=== PATIENT | female | born 1970 | race Caucasian/White ===

== ENCOUNTER → 2022-01-30 | Outpatient (CLI) | payer OTHER ==
--- NOTE | 2022-01-30 15:57 | XR ---
EXAMINATION TYPE: XR cervical spine comp DATE OF EXAM: 01/30/2022 COMPARISON: None HISTORY: Neck pain TECHNIQUE: 4 view cervical spine FINDINGS: Prevertebral space is normal. Posterior spinal lamellar line is intact. Disc height and carisa tebral body heights are preserved. Foramen are patent. No acute osseous abnormality radiographically apparent. IMPRESSION: 1. No acute osseous abnormality cervical spine. Follow-up can be performed as clinically indicated.
--- NOTE | 2022-01-30 15:58 | XR ---
EXAMINATION TYPE: XR thoracic spine complete DATE OF EXAM: 01/30/2022 COMPARISON: None HISTORY: Back pain TECHNIQUE: 3 view thoracic spine FINDINGS: No acute fractures are evident. There are 12 thoracic type vertebral bodies. Pedicles are i ntact. Disc heights are preserved. Vertebral body heights are preserved. Follow up exams can be perfo rmed as clinically indicated. IMPRESSION: 1. No acute osseous abnormalities thoracic spine.
== END | disposition home or self-care (01) ==
LOC: RADXRYALE 13:46
PROVIDERS: ATTEND Physician Assistant
DX: M50.30 Other cervical disc degeneration, unspecified cervical region (principal); M51.34 Other intervertebral disc degeneration, thoracic region
CPT/HCPCS: 72050; 72072

== ENCOUNTER → 2022-02-14 | Outpatient (CLI) | payer OTHER ==
--- NOTE | 2022-02-15 18:58 | MM ---
Reason for Exam: Screening (asymptomatic). Last mammogram was performed 5 year(s) and 8 month(s) ago. Patient History: Menarche at age 13. Postmenopausal. Risk Values: Carisa 5 year model risk: 0.7%. NCI Lifetime model risk: 5.8%. Tissue Density: The breast tissue is heterogeneously dense. This may lower the sensitivity of mammography. Findings: Analyzed By CAD. Bilateral breast implants. There is no suspicious group of microcalcifications or new suspicious mass in either breast. Overall Assessment: Negative, BI-RAD 1 Management: Screening Mammogram of both breasts in 1 year. A clinical breast exam by your physician is recommended on an annual basis and results should be correlated with mammographic findings. Electronically signed and approved by: Marcello Conteh DO
== END | disposition home or self-care (01) ==
LOC: RADMAMWWP 07:06
PROVIDERS: ATTEND Family Medicine
DX: Z12.31 Encounter for screening mammogram for malignant neoplasm of breast (principal); Z78.0 Asymptomatic menopausal state
CPT/HCPCS: 77063; 77067

== ENCOUNTER → 2024-10-22 | Outpatient (CLI) | payer BC ==
--- NOTE | 2024-10-22 07:49 | MM ---
Reason for Exam: Screening (asymptomatic). Last mammogram was performed 2 year(s) and 8 month(s) ago. Patient History: Menarche at age 13. Postmenopausal. Risk Values: Carisa 5 year model risk: 0.7%. NCI Lifetime model risk: 5.6%. Prior Study Comparison: 09/19/2014 Bilateral MG screening mammo w CAD - 2, [facility] [place] . 06/21/2016 Bilateral MG 3D screening mammo w/cad, [facility] [place] . 02/14/2022 Bilateral MG 3D screen mammo imp/cad., [facility]. Tissue Density: The breasts are heterogeneously dense, which may obscure small masses. Findings: Analyzed By CAD. Bilateral breast implants appear intact. Right breast: Asymmetry right breast MLO view 3.1 cm from nipple inferiorly on MLO view anterior depth. Left breast: There is no suspicious group of microcalcifications or new suspicious mass. Overall Assessment: Incomplete: need additional imaging evaluation, BI-RAD 0 Management: Diagnostic Breast Ultrasound of the right breast. Ultrasound imaging inferior aspect right breast anterior depth. [facility] will attempt to contact patient to return for supplemental views and ultrasound if indicated. Patient should continue monthly self-breast exams. A clinical breast exam by your physician is recommended on an annual basis. This exam should not preclude additional follow-up of suspicious palpable abnormalities. Note on Carisa scores and lifetime risk: 1. A Carisa score greater than 3% is considered moderate risk. If this is the case, consider specialist referral to assess eligibility for a risk reducing agent. 2. If overall lifetime risk for the development of breast cancer is 20% or higher, the patient may qualify for future screening with alternating mammogram and breast MRI. [facility], , 10/22/2024 7:46 AM. Electronically signed and approved by: Marcello Conteh DO
== END | disposition home or self-care (01) ==
LOC: RADMAMWWP 06:53
PROVIDERS: ATTEND Family Medicine
DX: Z12.31 Encounter for screening mammogram for malignant neoplasm of breast (principal); R92.333 Mammographic heterogeneous density, bilateral breasts; Z98.82 Breast implant status; Z78.0 Asymptomatic menopausal state
CPT/HCPCS: 77063; 77067